=== PATIENT | female | born 1975 | race Caucasian/White ===

== ENCOUNTER → 2023-11-02 | Outpatient (CLI) | payer OTHER | END | disposition home or self-care (01) | LOC: RAD 16:58 | PROVIDERS: ATTEND Chiropractor Orthopedic | DX: M43.22 Fusion of spine, cervical region (principal); T84.89XA Other specified complication of internal orthopedic prosthetic devices, implants and grafts, initial encounter; Y92.89 Other specified places as the place of occurrence of the external cause ==